=== PATIENT | male | born 1985 | race Caucasian/White ===

== ENCOUNTER 2021-07-03 10:39 | Inpatient (IN) ==
[2021-07-03] MEDS ORDERED: Isovue-370 500 ML BOTTLE IVP ONE (12:07)
[2021-07-03] MEDS ORDERED: Cefepime HCl 2,000 MG in 0.9 % Sodium Chloride Mini Bag 100 ML IVPB STA ×2 (12:12→13:20)
[2021-07-03] MEDS ORDERED: Ondansetron 4 MG/2 ML VIAL IVP ONE (12:12)
[2021-07-03] MEDS ORDERED: Morphine Sulfate 2 MG/ML SYRINGE IVP STA (12:14)
[2021-07-03] MEDS ORDERED: Vancomycin 1,250 MG/262.5 ML IV.SOLN IVPB ONE (13:00)
[2021-07-03 13:06] LABS: Hematocrit 40.6 % (37.5-50.1); Hemoglobin 14.5 g/dL (12.9-16.9); Mean Corpuscular HGB Conc 35.7 g/dL (31.6-35.5); Mean Corpuscular Volume 83.9 fL (83.0-100.0); Mean Platelet Volume 9.6 fL (9.4-12.4); Platelet Count 293 K/mcL (140-400); Red Blood Count 4.84 M/mcL (4.19-5.50); Red Cell Distribution Width 12.5 % (11.5-14.5)
[2021-07-03 13:29] LABS: Alanine Aminotransferase 24 Units/L (7-52); Albumin 4.1 g/dL (3.5-5.7); Albumin/Globulin Ratio 1.1 (1.1-2.2); Alkaline Phosphatase 72 Units/L (34-104); Aspartate Amino Transferase 11 Units/L (13-39); BUN/Creatinine Ratio 14 (6-26); Bilirubin,Direct 0.1 mg/dL (0.0-0.2); Bilirubin,Indirect 0.4 mg/dL (0.0-1.0); Bilirubin,Total 0.5 mg/dL (0.3-1.0); Blood Urea Nitrogen 11 mg/dL (6-20); Calcium 9.9 mg/dL (8.6-10.3); Carbon Dioxide 28 mEq/L (23-29); Chloride 100 mEq/L (98-107); Globulin 3.7 g/dL (2.4-3.5); Glucose 110 mg/dL (70-105); Osmolality,Calculated 278 (280-300); Potassium 4.5 mEq/L (3.5-5.1); Sodium 134 mEq/L (136-145); Total Protein 7.8 g/dL (6.4-8.9); eGFR For African Americans > 60 (> 60); eGFR For Non-African Americans > 60 (> 60)
[2021-07-03] MEDS ORDERED: *HR* HYDROmorphone (PF) 1 MG/ML SYRINGE IVP STA (16:49)
[2021-07-03] MEDS ORDERED: Ondansetron 4 MG/2 ML VIAL IVP PRN (17:45)
[2021-07-03] MEDS ORDERED: Melatonin 3 MG TABLET PO PRN (17:45)
[2021-07-03] MEDS ORDERED: Vancomycin (wt based) 1,000 MG VIAL IV SCH (18:00)
[2021-07-03] MEDS ORDERED: Naloxone 0.4 MG/ML INJ IVP PRN (18:16)
[2021-07-03] MEDS: *HR* HYDROmorphone (PF) 1 MG/ML SYRINGE IVP PRN (22:06)
[2021-07-03] MEDS: MetroNIDAZOLE 500 MG/100 ML 500 MG/100 ML BAG IVPB SCH (23:03)
[2021-07-03] MEDS: Cefepime HCl 1,000 MG in Water for inj. (sterile) 10 ML IVP SCH (23:04)
[2021-07-04] MEDS: *HR* HYDROmorphone (PF) 1 MG/ML SYRINGE IVP PRN ×3 (03:54→16:16)
[2021-07-04] MEDS ORDERED: Vancomycin 1,250 MG/262.5 ML IV.SOLN IVPB SCH ×2 (04:00→21:00)
[2021-07-04 06:51] LABS: Basophils % 0.3 %; Eosinophils % 0.2 %; Hematocrit 40.5 % (37.5-50.1); Hemoglobin 14.2 g/dL (12.9-16.9); Immature Granulocytes % 0.3 % (0-4); Mean Corpuscular HGB Conc 35.1 g/dL (31.6-35.5); Mean Corpuscular Hemoglobin 29.5 pg (28.0-33.3); Mean Platelet Volume 9.8 fL (9.4-12.4); Monocytes # 0.9 K/mcL (0.0-1.3); Monocytes % 7.1 %; Neutrophils # 9.4 K/mcL (1.6-8.9); Platelet Count 305 K/mcL (140-400); Red Blood Count 4.82 M/mcL (4.19-5.50); Red Cell Distribution Width 12.4 % (11.5-14.5); Segmented Neutrophils % 76.1 %; White Blood Count 12.3 K/mcL (4.3-11.1)
[2021-07-04] MEDS: Cefepime HCl 1,000 MG in Water for inj. (sterile) 10 ML IVP SCH ×3 (08:23→23:26)
[2021-07-04] MEDS: MetroNIDAZOLE 500 MG/100 ML 500 MG/100 ML BAG IVPB SCH ×3 (08:23→23:25)
[2021-07-04 13:36] LABS: Alanine Aminotransferase 20 Units/L (7-52); Albumin 3.7 g/dL (3.5-5.7); Alkaline Phosphatase 74 Units/L (34-104); Aspartate Amino Transferase 15 Units/L (13-39); BUN/Creatinine Ratio 21 (6-26); Bilirubin,Total 0.6 mg/dL (0.3-1.0); Blood Urea Nitrogen 14 mg/dL (6-20); Calcium 9.5 mg/dL (8.6-10.3); Carbon Dioxide 22 mEq/L (23-29); Chloride 101 mEq/L (98-107); Cholesterol 149 mg/dL (< 200); Globulin 3.7 g/dL (2.4-3.5); Glucose 85 mg/dL (70-105); HDL Cholesterol 30 mg/dL (40-59); LDL Cholesterol,Calculated 100 mg/dL (< 100); Osmolality,Calculated 278 (280-300); Potassium 4.6 mEq/L (3.5-5.1); Sodium 134 mEq/L (136-145); Total Protein 7.4 g/dL (6.4-8.9); Triglycerides 96 mg/dL (< 150); eGFR For African Americans > 60 (> 60); eGFR For Non-African Americans > 60 (> 60)
[2021-07-04] MEDS ORDERED: Acetaminophen IV 1,000 MG/100 ML BAG IVPB ONE ×2 (16:10→21:15)
[2021-07-04] MEDS ORDERED: Famotidine 20 MG/2 ML VIAL IVP ONE (16:10)
[2021-07-04] MEDS ORDERED: Ringers Solution, Lactated 1,000 ML IVC SCH ×2 (16:45→21:06)
[2021-07-04] MEDS ORDERED: Lidocaine -MPF 2% 5 ML VIAL ONE (17:02)
[2021-07-04] MEDS ORDERED: *HR* FentaNYL (PF) 100 MCG/2 ML VIAL ONE (17:02)
[2021-07-04] MEDS ORDERED: *HR* Propofol 200 MG/20 ML VIAL IVP ONE (17:02)
[2021-07-04] MEDS ORDERED: Ondansetron 4 MG/2 ML VIAL ONE (17:06)
[2021-07-04] MEDS ORDERED: *HR* Midazolam HCl 2 MG/2 ML VIAL ONE (17:24)
[2021-07-04] MEDS ORDERED: dexmedeTOMIDine in 0.9 % NaCL 80 MCG/20 ML MLS ONE (17:26)
[2021-07-04] MEDS ORDERED: Ketamine HCL *QUVA* 50mg (1mL) SYRINGE ONE (17:26)
[2021-07-04] MEDS ORDERED: *HR* HYDROmorphone PF 0.5 MG/0.5 ML SYRINGE IVP PRN (17:46)
[2021-07-04] MEDS ORDERED: *HR* HYDROMORPHONE 2 MG/ML VIAL ONE (18:01)
[2021-07-04] MEDS ORDERED: Ketorolac 30 MG/ML VIAL ONE (18:02)
[2021-07-04] MEDS ORDERED: Melatonin 3 MG TABLET PO PRN (21:06)
[2021-07-04] MEDS ORDERED: Naloxone 0.4 MG/ML INJ IVP PRN (21:06)
[2021-07-04] MEDS ORDERED: Ondansetron 4 MG/2 ML VIAL IVP PRN (21:06)
[2021-07-04] MEDS ORDERED: 0.9 % Sodium Chloride 1,000 ML IVC SCH (22:00)
[2021-07-05] MEDS: Cefepime HCl 1,000 MG in Water for inj. (sterile) 10 ML IVP SCH (08:49)
[2021-07-05] MEDS: MetroNIDAZOLE 500 MG/100 ML 500 MG/100 ML BAG IVPB SCH (08:50)
[2021-07-05] MEDS: *HR* HYDROmorphone (PF) 1 MG/ML SYRINGE IVP PRN (11:07)
[2021-07-05 12:56] LABS: Hematocrit 42.9 % (37.5-50.1); Hemoglobin 15.2 g/dL (12.9-16.9); Mean Corpuscular HGB Conc 35.4 g/dL (31.6-35.5); Mean Corpuscular Hemoglobin 29.8 pg (28.0-33.3); Mean Corpuscular Volume 84.1 fL (83.0-100.0); Mean Platelet Volume 10.2 fL (9.4-12.4); Platelet Count 263 K/mcL (140-400); Red Cell Distribution Width 12.3 % (11.5-14.5); White Blood Count 11.5 K/mcL (4.3-11.1)
[2021-07-05] MEDS: Nicotine 21 MG PATCH.TD24 TD SCH (15:35)
[2021-07-05] MEDS: metroNIDAZOLE 500 MG TABLET PO SCH ×2 (15:36→21:43)
[2021-07-05 17:23] LABS: BUN/Creatinine Ratio 21 (6-26); Blood Urea Nitrogen 18 mg/dL (6-20); Carbon Dioxide 26 mEq/L (23-29); Chloride 105 mEq/L (98-107); Glucose 93 mg/dL (70-105); Potassium 3.9 mEq/L (3.5-5.1); Sodium 138 mEq/L (136-145); eGFR For African Americans > 60 (> 60); eGFR For Non-African Americans > 60 (> 60)
[2021-07-05 17:24] LABS: Calcium 8.6 mg/dL (8.6-10.3); Osmolality,Calculated 288 (280-300); Vancomycin,Trough 3 mcg/mL (5-10)
[2021-07-05] MEDS: Cefepime HCl 2,000 MG in 0.9 % Sodium Chloride Mini Bag 100 ML IVPB SCH (17:25)
[2021-07-05] MEDS: Vancomycin 1,250 MG/262.5 ML IV.SOLN IVPB SCH (18:47)
[2021-07-06 03:26] LABS: Hematocrit 40.3 % (37.5-50.1); Mean Corpuscular HGB Conc 33.5 g/dL (31.6-35.5); Mean Corpuscular Hemoglobin 29.2 pg (28.0-33.3); Mean Platelet Volume 8.9 fL (9.4-12.4); Platelet Count 347 K/mcL (140-400); Red Blood Count 4.63 M/mcL (4.19-5.50); Red Cell Distribution Width 12.4 % (11.5-14.5); White Blood Count 6.7 K/mcL (4.3-11.1)
[2021-07-06 03:35] LABS: BUN/Creatinine Ratio 19 (6-26); Blood Urea Nitrogen 15 mg/dL (6-20); C-Reactive Protein 49 mg/L (Less than 10); Calcium 8.8 mg/dL (8.6-10.3); Carbon Dioxide 25 mEq/L (23-29); Chloride 108 mEq/L (98-107); Glucose 102 mg/dL (70-105); Osmolality,Calculated 283 (280-300); Potassium 4.1 mEq/L (3.5-5.1); Sodium 136 mEq/L (136-145); eGFR For African Americans > 60 (> 60); eGFR For Non-African Americans > 60 (> 60)
[2021-07-06 03:46] LABS: Hemoglobin 13.5 g/dL (12.9-16.9)
[2021-07-06] MEDS: Cefepime HCl 2,000 MG in 0.9 % Sodium Chloride Mini Bag 100 ML IVPB SCH ×2 (05:09→17:57)
[2021-07-06] MEDS: metroNIDAZOLE 500 MG TABLET PO SCH ×3 (07:35→20:46)
[2021-07-06] MEDS: Vancomycin 1,250 MG/262.5 ML IV.SOLN IVPB SCH ×2 (07:35→19:12)
[2021-07-06] MEDS: Nicotine 21 MG PATCH.TD24 TD SCH (07:35)
[2021-07-06] MEDS: *HR* HYDROmorphone (PF) 1 MG/ML SYRINGE IVP PRN (15:59)
[2021-07-07] MEDS: Cefepime HCl 2,000 MG in 0.9 % Sodium Chloride Mini Bag 100 ML IVPB SCH (05:09)
[2021-07-07 05:42] LABS: Hematocrit 40.5 % (37.5-50.1); Mean Corpuscular HGB Conc 34.6 g/dL (31.6-35.5); Mean Corpuscular Hemoglobin 29.9 pg (28.0-33.3); Mean Corpuscular Volume 86.5 fL (83.0-100.0); Mean Platelet Volume 8.9 fL (9.4-12.4); Platelet Count 354 K/mcL (140-400); Red Blood Count 4.68 M/mcL (4.19-5.50); Red Cell Distribution Width 12.1 % (11.5-14.5); White Blood Count 5.7 K/mcL (4.3-11.1)
[2021-07-07 06:01] LABS: BUN/Creatinine Ratio 20 (6-26); Blood Urea Nitrogen 14 mg/dL (6-20); Calcium 8.3 mg/dL (8.6-10.3); Carbon Dioxide 25 mEq/L (23-29); Chloride 106 mEq/L (98-107); Glucose 121 mg/dL (70-105); Osmolality,Calculated 284 (280-300); Potassium 3.7 mEq/L (3.5-5.1); Sodium 136 mEq/L (136-145); eGFR For African Americans > 60 (> 60); eGFR For Non-African Americans > 60 (> 60)
[2021-07-07] MEDS ORDERED: Vancomycin 1,500 MG/265 ML IV.SOLN IVPB SCH (09:00)
[2021-07-07] MEDS: metroNIDAZOLE 500 MG TABLET PO SCH ×3 (09:40→20:08)
[2021-07-07] MEDS: Nicotine 21 MG PATCH.TD24 TD SCH (09:40)
[2021-07-07] MEDS: cefTRIAXone 2,000 MG in 0.9 % Sodium Chloride Mini Bag 100 ML IVPB SCH (18:43)
[2021-07-07] MEDS: *HR* HYDROmorphone (PF) 1 MG/ML SYRINGE IVP PRN (21:07)
[2021-07-08 05:14] LABS: Hematocrit 45.3 % (37.5-50.1); Hemoglobin 15.2 g/dL (12.9-16.9); Mean Corpuscular HGB Conc 33.6 g/dL (31.6-35.5); Mean Corpuscular Hemoglobin 29.4 pg (28.0-33.3); Mean Corpuscular Volume 87.6 fL (83.0-100.0); Mean Platelet Volume 8.9 fL (9.4-12.4); Platelet Count 365 K/mcL (140-400); Red Blood Count 5.17 M/mcL (4.19-5.50); Red Cell Distribution Width 12.1 % (11.5-14.5); White Blood Count 7.3 K/mcL (4.3-11.1)
[2021-07-08 05:32] LABS: BUN/Creatinine Ratio 25 (6-26); Blood Urea Nitrogen 14 mg/dL (6-20); Calcium 7.2 mg/dL (8.6-10.3); Carbon Dioxide 20 mEq/L (23-29); Chloride 112 mEq/L (98-107); Glucose 81 mg/dL (70-105); Osmolality,Calculated 286 (280-300); Potassium 3.5 mEq/L (3.5-5.1); Sodium 138 mEq/L (136-145); eGFR For African Americans > 60 (> 60); eGFR For Non-African Americans > 60 (> 60)
[2021-07-08] MEDS: Nicotine 21 MG PATCH.TD24 TD SCH (08:38)
[2021-07-08] MEDS: metroNIDAZOLE 500 MG TABLET PO SCH ×3 (08:38→20:32)
[2021-07-08] MEDS: cefTRIAXone 2,000 MG in 0.9 % Sodium Chloride Mini Bag 100 ML IVPB SCH (08:39)
[2021-07-09 03:13] LABS: Hematocrit 46.8 % (37.5-50.1); Hemoglobin 15.5 g/dL (12.9-16.9); Mean Corpuscular HGB Conc 33.1 g/dL (31.6-35.5); Mean Corpuscular Hemoglobin 28.9 pg (28.0-33.3); Mean Corpuscular Volume 87.2 fL (83.0-100.0); Mean Platelet Volume 8.9 fL (9.4-12.4); Platelet Count 384 K/mcL (140-400); Red Blood Count 5.37 M/mcL (4.19-5.50); Red Cell Distribution Width 12.2 % (11.5-14.5); White Blood Count 8.9 K/mcL (4.3-11.1)
[2021-07-09 03:33] LABS: BUN/Creatinine Ratio 24 (6-26); Blood Urea Nitrogen 20 mg/dL (6-20); Carbon Dioxide 23 mEq/L (23-29); Chloride 104 mEq/L (98-107); Glucose 85 mg/dL (70-105); Osmolality,Calculated 282 (280-300); Potassium 3.9 mEq/L (3.5-5.1); Sodium 135 mEq/L (136-145); eGFR For African Americans > 60 (> 60); eGFR For Non-African Americans > 60 (> 60)
[2021-07-09] MEDS ORDERED: *HR* Propofol 200 MG/20 ML VIAL IVP ONE (08:34)
[2021-07-09] MEDS ORDERED: Ondansetron 4 MG/2 ML VIAL ONE (08:34)
[2021-07-09] MEDS ORDERED: *HR* Midazolam HCl 2 MG/2 ML VIAL ONE (08:34)
[2021-07-09] MEDS ORDERED: Lidocaine -MPF 2% 5 ML VIAL ONE (08:34)
[2021-07-09] MEDS ORDERED: *HR* FentaNYL (PF) 100 MCG/2 ML VIAL ONE (08:34)
[2021-07-09] MEDS ORDERED: *HR* Rocuronium Bromide 50 MG/5 ML VIAL ONE (08:34)
[2021-07-09] MEDS ORDERED: Ondansetron 4 MG/2 ML VIAL IVP PRN ×2 (08:36→20:01)
[2021-07-09] MEDS ORDERED: *HR* OxyCODONE Immed Rel 5 MG TABLET PO PRN (08:36)
[2021-07-09] MEDS ORDERED: Famotidine 20 MG/2 ML VIAL IVP ONE (08:37)
[2021-07-09] MEDS ORDERED: Pregabalin 75 MG CAPSULE PO ONE (08:37)
[2021-07-09] MEDS ORDERED: Acetaminophen IV 1,000 MG/100 ML BAG IVPB ONE (08:37)
[2021-07-09] MEDS ORDERED: Sugammadex Sodium 200 MG/2 ML VIAL IV ONE (09:49)
[2021-07-09] MEDS: *HR* HYDROmorphone PF 0.5 MG/0.5 ML SYRINGE IVP PRN ×3 (10:25→10:46)
[2021-07-09] MEDS: metroNIDAZOLE 500 MG TABLET PO SCH ×3 (11:32→20:51)
[2021-07-09] MEDS: Nicotine 21 MG PATCH.TD24 TD SCH (11:33)
[2021-07-09] MEDS: cefTRIAXone 2,000 MG in 0.9 % Sodium Chloride Mini Bag 100 ML IVPB SCH (11:33)
[2021-07-09] MEDS ORDERED: Naloxone 0.4 MG/ML INJ IVP PRN (20:01)
[2021-07-09] MEDS ORDERED: Melatonin 3 MG TABLET PO PRN (20:01)
[2021-07-09] MEDS ORDERED: *HR* HYDROmorphone (PF) 1 MG/ML SYRINGE IVP PRN (20:01)
[2021-07-10 06:32] LABS: Hematocrit 45.8 % (37.5-50.1); Hemoglobin 15.9 g/dL (12.9-16.9); Mean Corpuscular HGB Conc 34.7 g/dL (31.6-35.5); Mean Corpuscular Hemoglobin 29.7 pg (28.0-33.3); Mean Corpuscular Volume 85.6 fL (83.0-100.0); Mean Platelet Volume 10.4 fL (9.4-12.4); Platelet Count 369 K/mcL (140-400); Red Blood Count 5.35 M/mcL (4.19-5.50); Red Cell Distribution Width 12.1 % (11.5-14.5); White Blood Count 13.1 K/mcL (4.3-11.1)
[2021-07-10 07:34] LABS: BUN/Creatinine Ratio 27 (6-26); Blood Urea Nitrogen 19 mg/dL (6-20); Calcium 9.7 mg/dL (8.6-10.3); Carbon Dioxide 23 mEq/L (23-29); Chloride 102 mEq/L (98-107); Glucose 90 mg/dL (70-105); Osmolality,Calculated 280 (280-300); Potassium 4.8 mEq/L (3.5-5.1); Sodium 134 mEq/L (136-145); eGFR For African Americans > 60 (> 60); eGFR For Non-African Americans > 60 (> 60)
[2021-07-10] MEDS: metroNIDAZOLE 500 MG TABLET PO SCH ×2 (07:52→14:16)
[2021-07-10] MEDS ORDERED: cefTRIAXone 2,000 MG in 0.9 % Sodium Chloride Mini Bag 100 ML IVPB SCH (09:00)
[2021-07-10] MEDS ORDERED: Nicotine 21 MG PATCH.TD24 TD SCH (09:00)
[2021-07-10 11:50] VITALS: BP 120/70; PULSE 82; TEMP 98.2; O2SAT 97
== END 2021-07-10 15:24 | disposition home or self-care (01) | DRG 710 ==
LOC: EMEROOARM 10:39 → 3ANU 10:39 → SUATTDRO 17:04 → 3ANU 18:02 → SUATTDRO 07-05 14:21
PROVIDERS: ADMIT Student in an Organized Health Care Education/Training Program; ATTEND Internal Medicine